=== PATIENT | female | born 1975 | race Caucasian/White ===

== ENCOUNTER 2017-01-24 15:27 | Emergency (ER) | payer OTHER ==
--- NOTE | 2017-01-24 15:34 | DR.HEADACH ---
HPI - Time Seen Time seen: 15:35 - HPI Comment HPI Comment: Complaint of headache x 3 days with nausea and vomiting. Hx of migraines, no trauma, neurology follows. - Complaint/Symptoms Pertinent History: Headache - Reviewed Nurses Notes Reviewed: Yes - Source History Provided: Patient - Mode of Arrival Mode of Arrival: EMS - Timing Onset of Chief Complaint: 01/21/17 - Duration Since Onset: Intermittent How lon Duration: Days - Location Headache Location: Generalized - Quality Quality: Sharp - Severity Headache Severity: Moderate - Context Headache Onset Circumstances: Spontaneous. 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 - Family History Family Medical History: Diabetes Mellitus, Cancer, [place], Heart Failure, Hypertension - Social History Do you use any recreational Drugs:: No ROS - Review of Systems Constitutional: No Symptoms Reported Eyes: No Symptoms Reported ENTM: No Symptoms Reported Respiratoy: No Symptoms Reported Cardiovascular: No Symptoms Reported Gastrointestinal/Abdominal: No Symptoms Reported Genitourinary: No Symptoms Reported Neurological: Headache Musculoskeletal: No Symptoms Reported Integumentary: No Symptoms Reported Hematologic/Lymphatic: No Symptoms Reported Endocrine: No Symptoms Reported Psychiatric: Depression PE - Vital Signs Vitals: Temperature 96.6 F Pulse Rate 105 Respiratory Rate 24 Blood Pressure 100/69 O2 Sat by Pulse Oximetry 100 - General Limitations: No Limitations General Appearance: Alert, In No Apparent Distress - Head Head Exam: Normal Inspection - Eyes Eye exam: Normal Appearance, EOMI. negative: Scleral Icterus, Conjunctival Injection Eyelids: Normal Inspection: Bilateral Sclera/Conjunctival: Normal Inspection: Bilateral - ENT ENT Exam: Normal Exam - Neck Neck Exam: Normal Inspection, Full ROM, Trachea Midline - Respiratory Respiratory Exam: negative: Accessory Muscle Use, Respiratory Distress - Extremities Extremities Exam: Normal Inspection, Full ROM - Back Back Exam: Normal Inspection - Neurologic Neurological Exam: Alert, Oriented X3, CN II-XII Intact - Psychiatric Psychiatric Exam: Depressed - Skin Skin Exam: Intact, Normal Color - Diagnosis Discharge Problem: Migraine Qualifiers: Migraine type: unspecified Status migrainosus presence: without status migrainosus Intractability: not intractable Qualified Code(s): G43.909 - Migraine, unspecified, not intractable, without status migrainosus - Discharge Plan Condition: Stable - Follow ups/Referrals Follow ups/Referrals: GIL MATTHEW [Primary Care Provider] - 3 days - Instructions
[2017-01-24 15:41] VITALS: BMI 15.3
[2017-01-24] MEDS ORDERED: ZOFRAN INJ 4 MG VIAL IVP ONE (15:42)
[2017-01-24] MEDS ORDERED: NS 1000 ML 1,000 ML IV ONE (15:42)
[2017-01-24] MEDS ORDERED: DEMEROL INJ IVP ONE ×2 (15:43→16:57)
[2017-01-24] MEDS ORDERED: ZOFRAN INJ 4 MG VIAL ONE (15:45)
[2017-01-24] MEDS ORDERED: NS 1000 ML 1,000 ML ONE (15:45)
[2017-01-24] MEDS ORDERED: DEMEROL INJ ONE ×2 (15:45→16:47)
[2017-01-24] MEDS ORDERED: PHENERGAN INJ 25 MG ONE (16:46)
[2017-01-24] MEDS ORDERED: PHENERGAN INJ 25 MG IV ONE (16:57)
[2017-01-24 17:27] VITALS: BP 107/70
== END 2017-01-24 17:20 | disposition home or self-care (01) ==
LOC: ER 15:27
DX: G43.909 Migraine, unspecified, not intractable, without status migrainosus (principal)
CPT/HCPCS: 96365; 96374; 96375; 99282; 99283; J2175; J2405; J2550

== ENCOUNTER 2017-05-26 01:00 | Emergency (ER) | payer OTHER ==
[2017-05-26 01:18] VITALS: BMI 16.2
--- NOTE | 2017-05-26 01:58 | DR.GENAD ---
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 Patient states that she has had a headache for two weeks. She would like treatment for her headache. 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 - Family History History of Family Medical Conditions: Yes Family Medical History: Diabetes Mellitus, Cancer, [place], Heart Failure, Hypertension - Social History Does patient currently use any type of tobacco product: Yes Have you used tobacco products in the last 12 months: Yes Type of Tobacco Use: Cigarettes Does any household member use tobacco: No Alcohol Use: Occasionally Do you use any recreational Drugs:: No Lives With: Family Lives Where: Home - infectious screening In the last 2 months have you had wt loss of >10#?: NO Have you had fever, night sweats or hemotysis?: No Have you traveled outside the country in the last 6 months?: No Isolation: Standard ROS - Review of Systems Eyes: No Symptoms Reported ENTM: No Symptoms Reported Respiratoy: No Symptoms Reported Cardiovascular: No Symptoms Reported Gastrointestinal/Abdominal: No Symptoms Reported Genitourinary: No Symptoms Reported Neurological: No Symptoms Reported Musculoskeletal: No Symptoms Reported Integumentary: No Symptoms Reported Hematologic/Lymphatic: No Symptoms Reported Endocrine: No Symptoms Reported Psychiatric: No Symptoms Reported PE - Vital Signs Vitals: Temperature 97.6 F Pulse Rate 116 Respiratory Rate 18 Blood Pressure [Right Arm] 107/70 Blood Pressure 129/98 O2 Sat by Pulse Oximetry 98 - General Limitations: No Limitations General Appearance: Alert, In No Apparent Distress - Head Head Exam: Normal Inspection, Atraumatic - Eyes Eye exam: Normal Appearance, PERRL, EOMI - ENT ENT Exam: Normal Exam External Ear Exam: Normal External Inspection TM/Canal Exam: Bilateral Normal Nose Exam: Normal Nose Exam Mouth Exam: Normal Inspection Throat Exam: Normal Inspection - Neck Neck Exam: Normal Inspection - Chest Chest Inspection: Normal Inspection - Respiratory Respiratory Exam: Normal Lung Sounds Bilat Respiratory Exam: Bilateral Clear to Auscultation - Cardiovascular Cardiovascular Exam: Regular Rate - Abdominal Exam Abdominal Exam: Normal Inspection Abdominal Tenderness: negative: RUQ, RLQ, LUQ, LLQ, Epigastrium, Suprapubic, Diffuse, Mild, Moderate, Severe, Other - Extremities Extremities Exam: Normal Inspection, Full ROM - Back Back Exam: Normal Inspection - Neurologic Neurological Exam: Alert, Oriented X3, CN II-XII Intact - Psychiatric Psychiatric Exam: Normal Affect, Anxious - Skin Skin Exam: Warm, Dry, Intact, Rash (sparse macular erythematous rash on trunk) ROR - Labs Reviewed Result Diagrams: 05/26/17 02:19 05/26/17 02:19 Laboratory: WBC 5.1 X10^3/uL (3.6-10.0) 05/26/17 02:19 RBC 4.27 X10^6/uL (3.5-5.4) 05/26/17 02:19 Hgb 12.8 g/dL (12.0-16.0) 05/26/17 02:19 Hct 37.6 % (36.0-47.0) 05/26/17 02:19 MCV 88.0 fL (80.0-100.0) 05/26/17 02:19 MCH 30.0 pg (27.0-34.0) 05/26/17 02:19 MCHC 34.1 g/dL (33.0-35.0) 05/26/17 02:19 RDW 15.4 % (11.6-16.5) 05/26/17 02:19 Plt Count 234 X10^3/uL (150.0-450.0) 05/26/17 02:19 MPV 8.8 fL (7.4-11.0) 05/26/17 02:19 Neut % 40.9 % (42.0-75.0) L 05/26/17 02:19 Lymph % 39.1 % (21.0-51.0) 05/26/17 02:19 [place] % 12.5 % (0.0-13.0) 05/26/17 02:19 Eos % 6.3 % (0.9-2.9) H 05/26/17 02:19 Baso % 1.2 % (0.2-1.0) H 05/26/17 02:19 Neut # 2.1 x10^3/uL (2.2-4.8) L 05/26/17 02:19 Lymph # 2.0 X10^3/uL (1.3-2.9) 05/26/17 02:19 [place] # 0.6 x10^3/uL (0.3-0.8) 05/26/17 02:19 Eos # 0.3 x10^3/uL (0.0-0.2) H 05/26/17 02:19 Baso # 0.1 X10^3/uL (0.0-0.1) 05/26/17 02:19 Absolute Nucleated RBC 0.0 /100WBC 05/26/17 02:19 Sodium 136 mmol/L (136-145) 05/26/17 02:19 Corrected Sodium 137 mmol/L (136-145) 05/26/17 02:19 Potassium 3.9 mmol/L (3.5-5.1) 05/26/17 02:19 Chloride 104 mmol/L (98-107) 05/26/17 02:19 Carbon Dioxide 22.0 mmol/L (21-32) 05/26/17 02:19 BUN 27 mg/dL (7-18) H 05/26/17 02:19 Creatinine 1.04 mg/dL (0.55-1.02) H 05/26/17 02:19 Est GFR (MDRD) Af Amer > 60 (>60) 05/26/17 02:19 Est GFR (MDRD) Non-Af > 60 (>60) 05/26/17 02:19 Glucose 135 mg/dL (65-99) H 05/26/17 02:19 Calcium 9.0 mg/dL (8.5-10.1) 05/26/17 02:19 - Diagnosis Discharge Problem: Dermatitis Headache Qualifiers: Headache type: unspecified Headache chronicity pattern: acute headache Intractability: not intractable Qualified Code(s): R51 - Headache - Discharge Plan Condition: Stable - Follow ups/Referrals Follow ups/Referrals: GIL MATTHEW [Primary Care Provider] - 3 days - Instructions
[2017-05-26 02:31] LABS: BASOPHILS # (AUTO) 0.1 X10^3/uL (0.0-0.1); BASOPHILS % (AUTO) 1.2 % (0.2-1.0); EOSINOPHILS # (AUTO) 0.3 x10^3/uL (0.0-0.2); EOSINOPHILS % (AUTO) 6.3 % (0.9-2.9); HEMATOCRIT 37.6 % (36.0-47.0); HEMOGLOBIN 12.8 g/dL (12.0-16.0); LYMPHOCYTES % (AUTO) 39.1 % (21.0-51.0); MEAN CORPUSCULAR HGB CONC 34.1 g/dL (33.0-35.0); MEAN PLATELET VOLUME 8.8 fL (7.4-11.0); MONOCYTES # (AUTO) 0.6 x10^3/uL (0.3-0.8); MONOCYTES % (AUTO) 12.5 % (0.0-13.0); NEUTROPHILS # (AUTO) 2.1 x10^3/uL (2.2-4.8); NEUTROPHILS % (AUTO) 40.9 % (42.0-75.0); PLATELET COUNT 234 X10^3/uL (150.0-450.0); RED BLOOD COUNT 4.27 X10^6/uL (3.5-5.4); RED CELL DISTRIBUTION WIDTH 15.4 % (11.6-16.5); WHITE BLOOD COUNT 5.1 X10^3/uL (3.6-10.0)
[2017-05-26 02:36] LABS: BLOOD UREA NITROGEN 27 mg/dL (7-18); CHLORIDE 104 mmol/L (98-107); COR NA(FOR HYPERGLY) 137 mmol/L (136-145); SODIUM 136 mmol/L (136-145)
[2017-05-26 02:41] LABS: CREATININE 1.04 mg/dL (0.55-1.02); eGFR BLACK RACES > 60 (>60); eGFR NON BLACK RACES > 60 (>60)
[2017-05-26] MEDS ORDERED: TORADOL 30 MG VIAL IM ONE (03:19)
[2017-05-26] MEDS ORDERED: TORADOL 30 MG VIAL ONE (03:22)
[2017-05-26 03:41] VITALS: BP 121/91
== END 2017-05-26 03:34 | disposition home or self-care (01) ==
LOC: ER 01:00
DX: L30.9 Dermatitis, unspecified (principal); R51 Headache
CPT/HCPCS: 36415; 80048; 85025; 96372; 99282; J1885

== ENCOUNTER 2017-11-13 18:36 | Emergency (ER) | payer OTHER ==
[2017-11-13 18:49] VITALS: BP 123/85; BMI 15.6
--- NOTE | 2017-11-13 20:23 | DR.GENAD ---
HPI - PCP Primary Care Physician: MATTHEW - HPI Comment HPI Comment: WORSE TODAY. HOME MEDS NOT HELPING PAIN. NO SINUS CONGESTION OR FEVER. - Complaint/Symptoms Chief Complaint Doctors Comments: MIGRAINE HEADACHE WITH N/V TIMES 3 DAYS. Chief Complaint:: MIGRAINE/THROWING UP STARTED MONDAY NIGHT 11PM Self Treatment fo Chief Complaint: IMITREX. MOTRIN - Nurses notes reviewed Nurses Notes Review: Yes - Source History Provided: Patient - Mode of Arrival Mode of Arrival: Ambulatory - Timing Onset of Chief Complaint: 11/10/17 Came on: Suddenly - Duration Duration: Constant Duration: Days - Severity Severity: Moderate PMH - PMH Past Medical History: Yes Past Medical History: Anxiety, Depression, Migraines, Headaches Past Medical History Comment: ADD. 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 Past Surgical History Comment: CYST ON OVARIES - Family History History of Family Medical Conditions: Yes Family Medical History: Diabetes Mellitus, Cancer, [place], Coronary Artery Disease, Sudden Cardiac , Hypertension - Social History Does patient currently use any type of tobacco product: Yes Have you used tobacco products in the last 12 months: Yes Type of Tobacco Use: Cigarettes How many years tobacco product used: 20 Alcohol Use: None Do you use any recreational Drugs:: No Lives With: Family Lives Where: Home - infectious screening In the last 2 months have you had wt loss of >10#?: NO Have you had fever, night sweats or hemotysis?: No Have you traveled outside the country in the last 6 months?: No Isolation: Standard ROS - Review of Systems Constitutional: No Symptoms Reported. negative: See HPI, Fever, Weakness, Fatigue Eyes: No Symptoms Reported. negative: Eye Pain, Discharge ENTM: No Symptoms Reported. negative: Ear Pain, Nose Discharge, Nose Congestion , Throat Pain Respiratoy: No Symptoms Reported. negative: Productive Cough, Non-Productive Cough, Short of Breath, Wheezing, Hemoptysis Cardiovascular: No Symptoms Reported. negative: Chest Pain Gastrointestinal/Abdominal: Nausea, Vomiting. negative: Abdominal Pain Genitourinary: No Symptoms Reported. negative: Dysuria, Frequency, Hematuria Neurological: Headache, Weakness, Dizziness Musculoskeletal: Muscle Pain Integumentary: No Symptoms Reported Hematologic/Lymphatic: No Symptoms Reported Endocrine: No Symptoms Reported All Other Systems: Reviewed and Negative PE - Vital Signs Vitals: Temperature 98.7 F Pulse Rate 130 Respiratory Rate 20 Blood Pressure [Right Arm] 121/91 Blood Pressure 123/85 O2 Sat by Pulse Oximetry 99 - General Limitations: No Limitations General Appearance: Alert - Head Head Exam: Normal Inspection - Eyes Eye exam: Normal Appearance - ENT ENT Exam: Normal External Ear Exam External Ear Exam: Normal External Inspection TM/Canal Exam: Left Normal Nose Exam: Normal Nose Exam Mouth Exam: Normal Inspection Throat Exam: Normal Inspection - Neck Neck Exam: Trachea Midline - Chest Chest Inspection: Symmetric Chest Wall Rise - Respiratory Respiratory Exam: Normal Lung Sounds Bilat Respiratory Exam: Bilateral Clear to Auscultation - Cardiovascular Cardiovascular Exam: Regular Rate, Normal Rhythm, Normal Heart Sounds - Abdominal Exam Abdominal Exam: Normal Bowel Sounds, Soft. negative: Tenderness - Extremities Extremities Exam: Normal Inspection - Back Back Exam: Normal Inspection - Neurologic Neurological Exam: Alert, Oriented X3 - Psychiatric Psychiatric Exam: Normal Affect, Normal Mood - Skin Skin Exam: Normal Color MDM - Additional Information Additional Information Obtained From: Family - Differential Diagnosis Differential Diagnosis: MIGRAINE HEADACHE, SINUSITIS Course - Treatment Treatment: SEE ORDERS. IM PAIN MED IN ED. - Reevaluation 1st: Improved (PAIN IMPROVED.) - Education/Counseling Education/Counseling: Patient, Education Educated On: Treatment, Diagnosis, Needs for Follow Up - Diagnosis Discharge Problem: Migraine Qualifiers: Migraine type: unspecified Status migrainosus presence: without status migrainosus Intractability: intractable Qualified Code(s): G43.919 - Migraine, unspecified, intractable, without status migrainosus - Discharge Plan Disposition: 01 HOME, SELF-CARE Condition: Stable - Follow ups/Referrals Follow ups/Referrals: GIL MATTHEW [Primary Care Provider] - 3 days - Instructions Instructions: Migraine Headache, [id number] Additional Instructions: RETURN TO ED IF WORSE.
[2017-11-13] MEDS ORDERED: DEMEROL INJ IM ONE (20:26)
[2017-11-13] MEDS ORDERED: PHENERGAN INJ 25 MG IM ONE (20:26)
[2017-11-13] MEDS ORDERED: PHENERGAN INJ 25 MG ONE (20:30)
[2017-11-13] MEDS ORDERED: DEMEROL INJ ONE (20:30)
== END 2017-11-13 21:00 | disposition home or self-care (01) ==
LOC: ER 18:51
DX: G43.919 Migraine, unspecified, intractable, without status migrainosus (principal)
CPT/HCPCS: 96372; 99282; J2175; J2550